=== PATIENT | female | born 1995 | race Caucasian/White ===

== ENCOUNTER 2019-01-01 12:51 | Emergency (ER) | payer OTHER ==
[~2019-01-01] VITALS: Ht 162.6 cm; Wt 103.0 kg
[~2019-01-01 12:51] MED LIST: ALBUTEROL SULF8.5 GM INH; CARAFATE1 GM PO; FLAGYL250 MG PO; MEDROXYPROGESTE10 MG PO; NAPROSYN500 MG PO; ONDANSETRON ODT8 MG PO; ORTHO TRI-CYCL1 EACH PO; ORTHO-NOVUM1 EAC1 PO; PRILOSEC20 MG PO; PROMETHAZINE HC25 M1 PO; PSEUDOEPHEDRINE60 MG PO; VICODIN 5-5001 EACH PO; VITAFOL-OB+DHA1 EACH PO
[2019-01-01] MEDS ORDERED: ROBITUSSIN COU237 M2 PO (17:11)
[2019-01-01] MEDS ORDERED: PROVENTIL HFA6.7 GM INH (17:11)
== END 2019-01-01 17:59 | disposition home or self-care (01) ==
LOC: ED 12:51
DX: J45.909 Unspecified asthma, uncomplicated (principal); Z88.2 Allergy status to sulfonamides; Z79.899 Other long term (current) drug therapy
CPT/HCPCS: 94640; 99283; J7512

== ENCOUNTER 2023-01-31 18:39 | Emergency (ER) | payer OTHER ==
[~2023-01-31] VITALS: Ht 165.1 cm; Wt 111.1 kg
[~2023-01-31 18:39] MED LIST changes: +BUSPIRONE HCL15 MG PO; +CYCLOBENZAPRINE10 MG PO; +FLUTICASONE-SA1 EAC3 INH; +LAMOTRIGINE25 MG PO; +LIDODERM1 EACH TOP; +PREDNISONE20 MG PO; +PROVENTIL HFA6.7 GM INH; +ROBITUSSIN COU237 M2 PO
[2023-01-31 21:00] VITALS: BP 126/72
== END 2023-01-31 20:50 | disposition home or self-care (01) ==
LOC: ED 18:39
DX: G43.109 Migraine with aura, not intractable, without status migrainosus (principal); J45.909 Unspecified asthma, uncomplicated; Z88.2 Allergy status to sulfonamides; Z79.899 Other long term (current) drug therapy
CPT/HCPCS: 96374; 96375; 99283-25; J0780; J1200; J1885; J2060; J7121